=== PATIENT | female | born 1940 | race Caucasian/White ===

== ENCOUNTER → 2016-10-17 | Outpatient (CLI) | payer MEDICARE ==
[~2016-10-17] MED LIST: AMLO5TAB4 PO; ATOR10TA PO; BACL10TA PO; BISO1TAB46 PO; CALC-141 PO; ESTR0.5T8 PO; GEMF600T61 PO; IBUP-1724 PO; LACT1CAP73 PO; LISI20TA PO; LORA-204 PO; MULT-806 PO; OMEP20TA11 PO; ONDA-55 PO; OXYC-532 PO; POLY17PO6 PO; PSYL PO; ROPI0.256 PO; SCOP1PAT TD; [UNRECOGNIZED DRUG - CODE] PO
== END ==
LOC: WC.BC 10:50
DX: Z12.31 Encounter for screening mammogram for malignant neoplasm of breast (principal); N60.02 Solitary cyst of left breast
CPT/HCPCS: 77063; G0202